=== PATIENT | male | born 1955 | race Caucasian/White ===

== ENCOUNTER → 2016-09-16 | Outpatient (CLI) | payer OTHER ==
[~2016-09-16] MED LIST: ASPI81TA28 PO; ATOR-22 PO; DULO60CA44 PO; GLC/500 PO; LEVO50TA6 PO; MONT1TAB3 PO
[2016-09-16 12:40] LABS: BASO % 0.5 %; BASO ABS # 0.04 K/uL (0-0.2); COMPLETE YES; EOS % 2.5 %; HEMATOCRIT 44.6 % (42-52); IG% 0.1 %; LYMPH % 27.4 %; MEAN CELL VOLUME 83.7 fL (80-100); MEAN CORPUSCULAR HEMOGLOBIN 28.9 pg (25-34); MEAN CORPUSCULAR HGB CONC 34.5 g/dl (32-36); MEAN PLATELET VOLUME 10.6 fL (7.4-10.4); MONO % 7.9 %; NEUT % 61.6 %; PLATELET COUNT 206 K/uL (130-400); RED BLOOD COUNT 5.33 M/uL (4.7-6.1); WHITE BLOOD COUNT 8.77 K/uL (4.8-10.8)
[2016-09-16 12:58] LABS: ALT/SGPT 24 U/L (12-78); BLOOD UREA NITROGEN 17 mg/dl (7-18); BUN/CREATININE RATIO 15.3 (10-20); CALCIUM 9.1 mg/dl (8.5-10.1); CARBON DIOXIDE 31 mmol/L (21-32); CHLORIDE 106 mmol/L (98-107); CHOLESTEROL 137 mg/dl (0-200); GLUCOSE 89 mg/dl (70-99); POTASSIUM 4.6 mmol/L (3.5-5.1); SODIUM 142 mmol/L (136-145); TRIGLYCERIDES 118 mg/dl (0-150); VERY LOW DENSITY LIPOPROT CALC 24 mg/dl
[2016-09-16 13:08] LABS: ALB/GLOB RATIO 1.1 (0.9-2); ALKALINE PHOSPHATASE 105 U/L (45-117); AST/SGOT 15 U/L (15-37); CHOLESTEROL/HDL RATIO 3.5; HDL CHOLESTEROL 39 mg/dl; LDL CHOLESTEROL CALCULATED 74 mg/dl; PROSTATE SPECIFIC ANTIGEN 0.632 ng/ml (0.000-4.000)
[2016-09-16 13:12] LABS: ESTIMATED AVERAGE GLUCOSE 117 mg/dl; HA1C FLAG Normal (Normal)
== END | disposition home or self-care (01) ==
LOC: C.LABBFT 07:55
PROVIDERS: ATTEND Internal Medicine
DX: N40.1 Benign prostatic hyperplasia with lower urinary tract symptoms (principal); R73.01 Impaired fasting glucose; E03.9 Hypothyroidism, unspecified; E78.5 Hyperlipidemia, unspecified

== ENCOUNTER → 2017-02-08 | Day surgery (SDC) | payer OTHER ==
[2017-02-01 12:47] VITALS: Ht 188 cm; Wt 131.8 kg
[~2017-02-08] VITALS: Ht 188 cm; Wt 131.8 kg
[~2017-02-08] MED LIST changes: +LIDOCAINE HCL 2% 2 ML VIAL (20MG/ML) ONE; +PROPOFOL IV EMULSION 10 MG/ML 20 ML VIAL IV ONE; +SODIUM CHLORIDE 0.9% 500ML 500 ML IV ONE
--- NOTE | 2017-02-08 08:28 | Endo History and Physical ---
History & Physical Date of Service: Feb 08, 2017. Chief Complaint: screening Referring Physician: Dr. Faustino Peralta History of Present Illness 61 yo CM who presents for screening colonoscopy. Past Surgical History Hx Cardiac Surgery: No Hx Internal Defibrillator: No Hx Pacemaker: No Hx Abdominal Surgery: No Hx of Implantable Prosthesis: No Hx Post-Op Nausea and Vomiting: No Hx Cancer Surgery: No Hx Thoracic Surgery: No Hx Orthopedic: Yes (LEFT KNEE ARTHROSCOPY, RIGHT CTR) Hx Urinary Tract Surgery: No Family History None Social History Smoking Status: Never Smoker Hx Substance Use: No Hx Alcohol Use: No Allergies Coded Allergies: No Known Allergies (Verified , 02/08/17) Current Medications Reported Home Medications Medications Dose Route/Sig Max Daily Dose Days Date Category Cymbalta (Duloxetine Hcl) 60 Mg Cap 60 Mg PO HS 02/01/17 Reported Singulair (Montelukast Sodium) 10 Mg Tab 10 Mg PO QAM 02/01/17 Reported Glucophage (Metformin Hcl) 500 Mg Tab 500 Mg PO BID 02/01/17 Reported Levothyroxine Sodium 50 Mcg Tab 1 Tab PO QAM 02/01/17 Reported Lipitor (Atorvastatin Calcium) 20 Mg Tab 20 Mg PO HS 02/01/17 Reported Aspirin Ec (Aspirin) 81 Mg Tab 81 Mg PO HS 02/01/17 Reported Vital Signs Weight (Kilograms): 131.82 Height (Feet): 6 Height (Inches): 2 Date Time Temp Pulse Resp B/P (MAP) Pulse Ox O2 Delivery O2 Flow Rate FiO2 02/08/17 08:15 36.1 81 18 166/99 (121) 97 Room Air Physical Exam General Appearance: WD/WN, no apparent distress Respiratory/Chest: Auscultation: breath sounds normal Cardiovascular: Heart Auscultation: RRR Abdomen: Bowel Sounds: normal Inspection & Palpation: soft, non-distended, no tenderness, guarding & rebound Assessment and Plan Assessment: 61 yo CM who presents for screening colonoscopy. Plan: Proceed with colonoscopy.
--- NOTE | 2017-02-08 09:36 | Discharge Instructions ---
Endoscopy Patient Instructions Date / Procedure(s) Performed Feb 08, 2017. Colonoscopy Allergy Information Coded Allergies: No Known Allergies (Verified , 02/08/17) Discharge Date / Findings Feb 08, 2017. Rectal polyp Internal hemorrhoids Medication Instructions Stopped Medication(s): Stopped ASA on wednesdayFebruary 05,all meds except Levothyroxine also stopped Wednesday OK to resume all medications today as prescribed Reported Home Medications Medications Dose Route/Sig Max Daily Dose Days Date Category Cymbalta (Duloxetine Hcl) 60 Mg Cap 60 Mg PO HS 02/01/17 Reported Singulair (Montelukast Sodium) 10 Mg Tab 10 Mg PO QAM 02/01/17 Reported Glucophage (Metformin Hcl) 500 Mg Tab 500 Mg PO BID 02/01/17 Reported Levothyroxine Sodium 50 Mcg Tab 1 Tab PO QAM 02/01/17 Reported Lipitor (Atorvastatin Calcium) 20 Mg Tab 20 Mg PO HS 02/01/17 Reported Aspirin Ec (Aspirin) 81 Mg Tab 81 Mg PO HS 02/01/17 Reported Provider Instructions Activity Restrictions - No exercising or heavy lifting for 24 hours. - Do not drink alcohol the day of the procedure. - Do not drive a car or operate machinery until the day after the procedure. - Do not make any important decisions or sign important papers in 24 hours after the procedure. Following Day: - Return to full activity which may include returning to work/school. Diet Start your diet with liquids and light foods (jello, soup, juice, toast). Then eat your usual diet if not nauseated. Treatment For Common After Affects For mild abdominal pain, bloating, or excessive gas: - Rest - Eat lightly - Lie on right side Follow-Up Information Follow-up with Dr. Faustino Peralta as scheduled Anesthesia Information What You Should Know You have had a procedure that required some medicine to reduce anxiety and discomfort. This treatment is called moderate sedation. After receiving the treatment, you may be sleepy, but you will be able to breathe on your own. The effects of the treatment may last for several hours. Follow these instructions along with Activity/Diet recommendations noted above: * Do NOT do anything where dizziness or clumsiness would be dangerous. * Rest quietly at home today, then you can be up and about tomorrow. * Have a responsible person stay with you the rest of today. * You may have had an I.V. today. If so, you may take the dressing off later today. Recommendations Call your doctor if: * Trouble breathing * Continuous vomiting for more than 24 hours * Temperature above 101 degrees * Severe abdominal pain or bloating * Pain not relieved by pain medicine ordered * There is increased drainage or redness from any incision * A large amount of rectal bleeding greater than 2-3 tablespoons. (If you had a polyp/s removed or have hemorrhoids, a small amount of blood - from the rectum is to be expected.) * You have any unanswered questions or concerns. IN THE EVENT OF A SERIOUS EMERGENCY, GO TO THE NEAREST EMERGENCY ROOM Your discharge instructions were prepared by provider Chucky Goss. Patient Instructions Signature Page Jamal Rutledge Patient (or Guardian) Signature/Date: I have read and understand the instructions given to me by my caregivers. Caregiver/RN/Doctor Signature/Date: The above-named patient and/or guardian has received patient instructions on this date. + Original Patient Signature Page (only) stays with chart. Please make copy for patient.
--- NOTE | 2017-02-08 09:45 | Anesthesiology Progress Note ---
Anesthesia Post Op Note Date & Time Feb 08, 2017 at 09:44 Vital Signs Pain Intensity: 0 Vital Signs Past 12 Hours Date Time Temp Pulse Resp B/P (MAP) Pulse Ox O2 Delivery O2 Flow Rate FiO2 02/08/17 09:34 70 20 126/64 (84) 97 Room Air 02/08/17 08:15 36.1 81 18 166/99 (121) 97 Room Air Notes Mental Status: alert / awake / arousable, participated in evaluation Pt Amnestic to Procedure: Yes Nausea / Vomiting: adequately controlled Pain: adequately controlled Airway Patency, RR, SpO2: stable & adequate BP & HR: stable & adequate Hydration State: stable & adequate Anesthetic Complications: no major complications apparent
[2017-02-08 10:03] VITALS: BP 171/87; PULSE 59; O2SAT 98
--- NOTE | 2017-02-08 11:26 | GI REPORT ---
Procedure Date: 02/08/2017 9:01 AM Procedure: Colonoscopy Indications: Screening for colorectal malignant neoplasm Medicines: Monitored Anesthesia Care Complications: No immediate complications. Estimated Blood Loss: Estimated blood loss: none. Procedure: Pre-Anesthesia Assessment: - Prior to the procedure, a History and Physical was performed, and patient medications and allergies were reviewed. The patient's tolerance of previous anesthesia was also reviewed. The risks and benefits of the procedure and the sedation options and risks were discussed with the patient. All questions were answered, and informed consent was obtained. Prior Anticoagulants: The patient has taken aspirin, last dose was 3 days prior to procedure. ASA Grade Assessment: II - A patient with mild systemic disease. After reviewing the risks and benefits, the patient was deemed in satisfactory condition to undergo the procedure. After I obtained informed consent, the scope was passed under direct vision. Throughout the procedure, the patient's blood pressure, pulse, and oxygen saturations were monitored continuously. The On-site loaner was introduced through the anus and advanced to the terminal ileum. The colonoscopy was performed without difficulty. The patient tolerated the procedure well. The quality of the bowel preparation was good. The terminal ileum, ileocecal valve, appendiceal orifice, and rectum were photographed. Findings: A 5 mm polyp was found in the rectum. The polyp was sessile. The polyp was removed with a hot snare. Resection and retrieval were complete. Non-bleeding internal hemorrhoids were found during retroflexion. The hemorrhoids were small. Impression: - One 5 mm polyp in the rectum, removed with a hot snare. Resected and retrieved. - Non-bleeding internal hemorrhoids. Recommendation: - Resume previous diet. - Continue present medications. - Repeat colonoscopy for surveillance based on pathology results. - Return to primary care physician as previously scheduled. Chucky Goss DO 02/08/2017 9:46:10 AM This report has been signed electronically. Note Initiated On: 02/08/2017 9:01 AM I attest to the content of the Intraoperative Record and orders documented therein, exceptions below
== END | disposition home or self-care (01) ==
LOC: C.GI 07:56
PROVIDERS: ATTEND Internal Medicine
DX: Z12.11 Encounter for screening for malignant neoplasm of colon (principal); K62.1 Rectal polyp; K64.8 Other hemorrhoids; E11.9 Type 2 diabetes mellitus without complications; E66.9 Obesity, unspecified; Z68.37 Body mass index [BMI] 37.0-37.9, adult; Z79.82 Long term (current) use of aspirin; Z98.890 Other specified postprocedural states

== ENCOUNTER → 2017-10-25 | Outpatient (CLI) | payer OTHER ==
[~2017-10-25] MED LIST changes: -LIDOCAINE HCL 2% 2 ML VIAL (20MG/ML) ONE; -PROPOFOL IV EMULSION 10 MG/ML 20 ML VIAL IV ONE; -SODIUM CHLORIDE 0.9% 500ML 500 ML IV ONE
[2017-10-25 12:40] LABS: BASO % 0.4 %; BASO ABS # 0.03 K/uL (0-0.2); EOS % 2.6 %; HEMATOCRIT 45.6 % (42-52); HEMOGLOBIN 15.6 g/dL (14.0-18.0); IG# 0.02 K/uL (0.00-0.02); LYMPH % 26.4 %; LYMPH ABS # 2.02 K/uL (1.2-3.4); MEAN CELL VOLUME 84.8 fL (80-100); MEAN CORPUSCULAR HGB CONC 34.2 g/dl (32-36); MEAN PLATELET VOLUME 10.6 fL (7.4-10.4); MONO % 9.2 %; NEUT % 61.1 %; NEUT ABS # 4.68 K/uL (1.4-6.5); PLATELET COUNT 220 K/uL (130-400); RED CELL DISTRIBUTION WIDTH CV 13.6 % (11.5-14.5); RED CELL DISTRIBUTION WIDTH SD 41.6 fL (36.4-46.3); WHITE BLOOD COUNT 7.65 K/uL (4.8-10.8)
[2017-10-25 13:19] LABS: HEMOGLOBIN A1C 5.6 % (4.5-5.6)
[2017-10-25 13:33] LABS: ALBUMIN 3.7 gm/dl (3.4-5.0); ALT/SGPT 25 U/L (12-78); BLOOD UREA NITROGEN 16 mg/dl (7-18); CALCIUM 9.1 mg/dl (8.5-10.1); CARBON DIOXIDE 29 mmol/L (21-32); CHOLESTEROL 132 mg/dl (0-200); CREATININE 1.07 mg/dl (0.60-1.40); GLUCOSE 90 mg/dl (70-99); POTASSIUM 4.3 mmol/L (3.5-5.1); SODIUM 141 mmol/L (136-145)
[2017-10-25 13:44] LABS: ALKALINE PHOSPHATASE 106 U/L (45-117); AST/SGOT 19 U/L (15-37); LDL CHOLESTEROL CALCULATED 79 mg/dl; TOTAL PROTEIN 7.5 gm/dl (6.4-8.2)
== END | disposition home or self-care (01) ==
LOC: C.LABBFT 07:14
PROVIDERS: ATTEND Internal Medicine
DX: R73.01 Impaired fasting glucose (principal); E78.5 Hyperlipidemia, unspecified; E55.9 Vitamin D deficiency, unspecified; E03.9 Hypothyroidism, unspecified; Z12.5 Encounter for screening for malignant neoplasm of prostate

== ENCOUNTER 2023-08-26 12:06 | Observation (INO) ==
[2023-08-26 12:39] LABS: Basophils # (auto) 0.08 K/uL (0.00-0.20); Basophils % (auto) 0.9 %; Eosinophils # (auto) 0.19 K/uL (0.00-0.50); Eosinophils % (auto) 2.1 %; Hematocrit (blood only) 46.6 % (42.0-52.0); Hemoglobin 15.6 g/dl (14.0-18.0); Immature Granulocytes # (auto) 0.03 K/uL (0.01-0.20); Immature Granulocytes % (auto) 0.3 %; Lymphocytes # (auto) 2.33 K/uL (1.20-3.40); Lymphocytes % (auto) 25.2 %; Mean Corpuscular Hemoglobin 28.1 pg (25.0-34.0); Mean Corpuscular Hgb Conc 33.5 g/dL (32.0-36.0); Mean Corpuscular Volume 83.8 fL (80.0-100.0); Monocytes # (auto) 0.86 K/uL (0.11-0.59); Monocytes % (auto) 9.3 %; Neutrophils # (auto) 5.77 K/uL (1.40-6.50); Neutrophils % (auto) 62.2 %; Platelet Count 244 K/uL (130-400); RDW Coefficient of Variation 13.3 % (11.5-14.5); RDW Standard Deviation 40.9 fL (36.4-46.3); Red Blood Count 5.56 M/uL (4.70-6.10); White Blood Count 9.26 K/ul (4.8-10.8)
[2023-08-26 12:51] LABS: BUN Creatinine Ratio 16.7 (10-20); Calcium 9.4 mg/dl (8.6-10.3); Creatinine Clr Calc Pharmacy 92.7 ml/min; Est GFR (African American) 81.3 ml/min; Est GFR (Non-African American) 70.2 ml/min; Potassium 4.1 mmol/L (3.5-5.1)
[2023-08-26 12:58] LABS: Troponin I High Sensitivity 5.6 pg/ml (0-20)
--- NOTE | 2023-08-26 13:07 | CT Scan Report ---
CT head/brain wo con CLINICAL HISTORY: 67 years-old Male with syncope. No acute syncope TECHNIQUE: Multiple axial CT images of the head were obtained without contrast. A dose lowering tech nique was utilized adhering to the principles of ALARA. CT DOSE: 627.18 mGy.cm COMPARISON: CT maxillofacial 08/20/2023 FINDINGS: No acute intracranial hemorrhage, midline shift, intracranial mass, hydrocephalus, territorial ischem ia or abnormal extra-axial collection. Involutional changes with chronic microvascular ischemic disea se. The calvarium is intact. Minimal right periorbital edema redemonstrated. Partially imaged right maxil brian polypoid mucosal thickening. IMPRESSION: No acute intracranial abnormality. ACT 112: Negative or not required by law. The above report was generated using voice recognition software. It may contain grammatical, syntax o r spelling errors. Electronically signed by: Lazaro Marroquin M.D. 08/26/2023 1:06 PM
[2023-08-26 13:10] LABS: Partial Thromboplastin Time 27 Seconds (21-31); Prothrombin Time 10.7 Seconds (9.0-12.0)
--- NOTE | 2023-08-26 13:12 | XRay Report ---
XR chest 1V portable HISTORY: Chest pain, nonspecific COMPARISON: None. FINDINGS: The cardiac silhouette is mildly enlarged. The lungs are clear. No pleural effusions. No pn eumothorax. No acute fractures identified. IMPRESSION: Mild cardiomegaly. Otherwise, no acute process within the chest. ACT 112: Negative or not required by law. Electronically signed by: Blane Hardin M.D. 08/26/2023 1:11 PM
[2023-08-26 13:16] LABS: D Dimer 1300 ug/L FEU (0-500)
[2023-08-26] MEDS ORDERED: OPTIRAY 320 125ml IV ONE (13:31)
--- NOTE | 2023-08-26 14:17 | CT Scan Report ---
CT angio chest PE protocol CT DOSE: 1015.74 mGy.cm HISTORY: 67 years-old Male with ro PE. Acute shortness of breath TECHNIQUE: Multiple CTA images of the chest were obtained after the intravenous administration of 114 ml Optiray. Coronal and sagittal MIPS were obtained from the axial data set and were submitted for review. All measurements were obtained according to NASCET criteria. A dose lowering technique was u tilized adhering to the principles of ALARA. COMPARISON: Chest radiograph 08/26/2023 FINDINGS: CTA: Heart is mildly enlarged. Extensive coronary artery calcifications. Atherosclerosis of the aorta with out aneurysm. Segmental and subsegmental pulmonary arterial branches are not well-visualized secondar y to contrast bolus timing and respiratory motion artifact. No central pulmonary emboli identified. CT CHEST: Unremarkable thyroid. No lymphadenopathy. Mild gynecomastia. No pneumothorax, pleural effusion or air space consolidation. No suspicious pulmonary nodules or masses. Central airways are patent. No acute upper abdominal abnormality. 4.6 and renal hypodense lesion of the superior pole left kidney suggestive of a probable cyst. Unremarkable soft tissues. No acute fracture. Degenerative changes of the shoulders and spine. IMPRESSION: Unremarkable CTA of the chest. No pulmonary emboli identified. ACT 112: Negative or not required by law. The above report was generated using voice recognition software. It may contain grammatical, syntax o r spelling errors. Electronically signed by: Lazaro Marroquin M.D. 08/26/2023 2:16 PM
--- NOTE | 2023-08-26 15:35 | History & Physical Report ---
Date of Service August 26, 2023 Assessment & Plan (1) Syncope: Plan: 67 yo male with PMHx of HLD, hypothyroidism, HTN, and memory loss, and depression presents for syncope. #Syncope -presented with 2 episodes of syncope 1 week apart. Both episodes preceded with shortness of breath otherwise without prodrome or subsequent confusion. Likely cardiogenic. HR appears to be in 50s since admission, ?episodic bradycardic events. Head CT neg. CTA without PE. CXR unremarkable. No signs for infection. Troponin negative. EKG with sinus bradycardia. -echo ordered -cardiology consulted -monitor on tele - may require outpatient holter monitor #Elevated D-dimer -D-dimer 1300 on admission; unclear etiology, possible due to traumatic falls -CTA chest without PE -ordered bilateral venous Doppler to r/o DVT #Hypothyroidism -cont. levothyroxine -recheck TSH for secondary cause of syncope #HTN -cont. lisinopril #HLD -cont. statin #Memory Deficit -cont. donepezil #Depression -cont. sertraline #Allergic Rhinitis -cont. montelukast, loratadine DVT ppx: heparin SQ FEN/GI: HH, DM2 Code Status: full Dispo: med tele (2) Depression: (3) Hyperlipidemia: (4) Hypertension: (5) Hypothyroidism: (6) Memory deficit: (7) Allergic rhinitis: History of Present Illness Chief Complaint: syncope Primary Care Provider: Faustino Peralta MD 67 yo male with PMHx of HLD, hypothyroidism, HTN, and memory loss, and depression presents for syncope. 11 days ago patient was shoveling snow in his driveway and had sudden onset shortness of breath. He walked into his house and while grasping a chair for support he got a little dizzy and fainted to the ground. He was down for 1 to 2 minutes. His states that when he got back up he collapsed a second time. No seizure-like activity. When he came about he had very minimal confusion. Then 3 days ago he had a similar event. He got up from his bed and went to the bathroom and after a few minutes passed out to the floor hitting his right knee on the way down. No prodrome with this incidence and when he woke up he had no idea he had passed out. His does mention that in bed prior to him getting up he did appear short of breath. He will have intermittent headache from time to time. Otherwise denies fever, chills, fatigue, chest pain, abdominal pain, nausea, vomiting, diarrhea, dysuria, extremity weakness/tingling/numbness. He has not had any syncopal events in the past. No significant heart or lung history. He states he likely has sleep apnea however has never had a sleep study in the outpatient setting. Allergies Allergy/AdvReac Type Severity Reaction Status Date / Time No Known Allergies Allergy Verified 08/26/23 10:22 Home Medications Medication Instructions Recorded Confirmed Type metformin 500 mg tablet,extended 500 mg PO BID #180 tabs 09/24/22 08/26/23 Rx release 24hr (osmotic) donepezil 10 mg tablet 10 mg PO DAILY #90 tabs 10/16/22 08/26/23 Rx aspirin 81 mg tablet,delayed 81 mg PO DAILY PRN pain 10/21/22 08/26/23 History release (Adult Low Dose Aspirin) montelukast 10 mg tablet 10 mg PO DAILY #90 tabs 10/30/22 08/26/23 Rx lisinopril 5 mg tablet 5 mg PO DAILY #90 tabs 11/11/22 08/26/23 Rx loratadine 10 mg tablet (Claritin) 10 mg PO DAILY 11/18/22 08/26/23 History sertraline 50 mg tablet 50 mg PO DAILY #90 tabs 04/30/23 08/26/23 Rx levothyroxine 50 mcg tablet 50 mcg PO DAILY #90 tabs 08/19/23 08/26/23 Rx amoxicillin 875 mg-potassium 1 tab PO BID #18 tabs 08/20/23 08/26/23 Rx clavulanate 125 mg tablet erythromycin 5 mg/gram (0.5 %) eye 1 cm OPL Q6H 7 days #3.5 grams 08/20/23 08/26/23 Rx ointment erythromycin 5 mg/gram (0.5 %) eye 1 cm OPR Q6H 7 days #3.5 grams 08/20/23 08/26/23 Rx ointment atorvastatin 20 mg tablet 20 mg PO DAILY #90 tabs 08/25/23 08/26/23 Rx Past Med/Surg History Medical History No pertinent past medical history Surgical History H/O colonoscopy S/P arthroscopic surgery of left knee History of decompression of median nerve H/O vasectomy Family History Father Multiple myeloma Mother Coronary heart disease Diabetes Acute myocardial infarction Myocardial infarction Denies family history of Ovarian cancer Prostate cancer Breast cancer Colorectal cancer Social History Smoking Status: Never smoker Second Hand Exposure: Yes; Do You Dip or Chew Tobacco: No; Hx Alcohol Use: Yes Hx Substance Use: No Preferred Language: Mauritanian Beliefs That Will Affect Care: None marital status: Current Living Situation: Spouse and Family current occupational status: retired current occupation: general accountant at [employer] Feels Safe at Home: Yes Childhood Exposure to Second-Hand Smoke: Yes Diet: regular caffeine: Yes (Not often) Dental Care, Regularly: Yes Physical Activity Frequency: 5-6 Times per Week Seatbelt Use: always Sunscreen Use: No Assistive Devices: Glasses Review of Systems Review of Systems: All systems reviewed & are unremarkable except as noted in HPI & below Physical Exam Physical Exam: Constitutional: in no acute distress, pleasant and normal affect. AOx3. Vitals as above. HEENT: No scleral injection or discharge. Moist mucous membranes. Neck: Supple without lymphadenopathy or thyromegaly. Trachea midline. Lungs: CTAB with good effort. No wheezes/rales/rhonchi. Cardiac: Bradycardic. Normal rhythm.No murmurs. No lower extremity edema. 2+ distal peripheral pulses. Abdomen: Bowel sounds present. Soft, nontender, and nondistended.No guarding. No hepatosplenomegaly. MSK: No cyanosis or clubbing. Extremities motor strength 5/5. Limited R knee flexion secondary to fall. Skin: No rashes, warm, dry. Neurologic: no focal deficits. PERRL. Results & Data Results & Data Vital Signs (Past 12 Hours) Vital Signs Temp Pulse Pulse Resp BP BP Pulse Ox 08/26/23 14:07 58 L 16 139/80 99 08/26/23 12:29 56 L 08/26/23 12:25 08/26/23 12:25 08/26/23 12:09 36.4 C L 63 20 162/84 H 98 O2 Del Method 08/26/23 14:07 Room Air 08/26/23 12:29 08/26/23 12:25 Room Air 08/26/23 12:25 Room Air 08/26/23 12:09 Room Air Laboratory Results Laboratory Results WBC 9.26 K/ul (4.8-10.8) 08/26/23 12:20 RBC 5.56 M/uL (4.70-6.10) 08/26/23 12:20 Hgb 15.6 g/dl (14.0-18.0) 08/26/23 12:20 Hct 46.6 % (42.0-52.0) 08/26/23 12:20 MCV 83.8 fL (80.0-100.0) 08/26/23 12:20 MCH 28.1 pg (25.0-34.0) 08/26/23 12:20 MCHC 33.5 g/dL (32.0-36.0) 08/26/23 12:20 RDW Std Deviation 40.9 fL (36.4-46.3) 08/26/23 12:20 RDW Coeff of Melinda 13.3 % (11.5-14.5) 08/26/23 12:20 Plt Count 244 K/uL (130-400) 08/26/23 12:20 MPV 10.0 fL (9.4-12.4) 08/26/23 12:20 Immature Gran % (Auto) 0.3 % 08/26/23 12:20 Neut % (Auto) 62.2 % 08/26/23 12:20 Lymph % (Auto) 25.2 % 08/26/23 12:20 Irwin % (Auto) 9.3 % 08/26/23 12:20 Eos % (Auto) 2.1 % 08/26/23 12:20 Baso % (Auto) 0.9 % 08/26/23 12:20 Neut # (Auto) 5.77 K/uL (1.40-6.50) 08/26/23 12:20 Lymph # (Auto) 2.33 K/uL (1.20-3.40) 08/26/23 12:20 Irwin # (Auto) 0.86 K/uL (0.11-0.59) H 08/26/23 12:20 Eos # (Auto) 0.19 K/uL (0.00-0.50) 08/26/23 12:20 Baso # (Auto) 0.08 K/uL (0.00-0.20) 08/26/23 12:20 Immature Gran # (Auto) 0.03 K/uL (0.01-0.20) 08/26/23 12:20 PT 10.7 Seconds (9.0-12.0) 08/26/23 12:20 INR 1.0 (0.9-1.1) 08/26/23 12:20 APTT 27 Seconds (21-31) 08/26/23 12:20 PTT Ratio 1.0 08/26/23 12:20 D-Dimer 1300 ug/L FEU (0-500) H* 08/26/23 12:20 Sodium 141 mmol/L (136-145) 08/26/23 12:20 Potassium 4.1 mmol/L (3.5-5.1) 08/26/23 12:20 Chloride 107 mmol/L (98-107) 08/26/23 12:20 Carbon Dioxide 29 mmol/L (21-32) 08/26/23 12:20 Anion Gap 5 (3-11) 08/26/23 12:20 BUN 18 mg/dl (6-23) 08/26/23 12:20 Creatinine 1.08 mg/dl (0.6-1.4) 08/26/23 12:20 Est Cr Clr Drug Dosing 92.7 ml/min 08/26/23 12:20 Est GFR ( Amer) 81.3 ml/min 08/26/23 12:20 Est GFR (Non-Af Amer) 70.2 ml/min 08/26/23 12:20 BUN/Creatinine Ratio 16.7 (10-20) 08/26/23 12:20 Glucose 87 mg/dl (70-99(Fasting)) 08/26/23 12:20 Calcium 9.4 mg/dl (8.6-10.3) 08/26/23 12:20 Troponin I High Sens 5.6 pg/ml (0-20) 08/26/23 12:20 Lipase 42 U/L (11-82) 08/26/23 12:20 Impressions Chest X-Ray 08/26/23 12:20 XR chest 1V portable HISTORY: Chest pain, nonspecific COMPARISON: None. FINDINGS: The cardiac silhouette is mildly enlarged. The lungs are clear. No pleural effusions. No pneumothorax. No acute fractures identified. IMPRESSION: Mild cardiomegaly. Otherwise, no acute process within the chest. ACT 112: Negative or not required by law. Electronically signed by: Blane Hardin M.D. 08/26/2023 1:[address] 08/26/23 12:21 CT head/brain wo con CLINICAL HISTORY: 67 years-old Male with syncope. No acute syncope TECHNIQUE: Multiple axial CT images of the head were obtained without contrast. A dose lowering technique was utilized adhering to the principles of ALARA. CT DOSE: 627.18 mGy.cm COMPARISON: CT maxillofacial 08/20/2023 FINDINGS: No acute intracranial hemorrhage, midline shift, intracranial mass, hydrocephalus, territorial ischemia or abnormal extra-axial collection. Involutional changes with chronic microvascular ischemic disease. The calvarium is intact. Minimal right periorbital edema redemonstrated. Partially imaged right maxillary polypoid mucosal thickening. IMPRESSION: No acute intracranial abnormality. ACT 112: Negative or not required by law. The above report was generated using voice recognition software. It may contain grammatical, syntax or spelling errors. Electronically signed by: Lazaro Marroquin M.D. 08/26/2023 1:06 PM Chest CTA 08/26/23 13:18 CT angio chest PE protocol CT DOSE: 1015.74 mGy.cm HISTORY: 67 years-old Male with ro PE. Acute shortness of breath TECHNIQUE: Multiple CTA images of the chest were obtained after the intravenous administration of 114 ml Optiray. Coronal and sagittal MIPS were obtained from the axial data set and were submitted for review. All measurements were obtained according to NASCET criteria. A dose lowering technique was utilized adhering to the principles of ALARA. COMPARISON: Chest radiograph 08/26/2023 FINDINGS: CTA: Heart is mildly enlarged. Extensive coronary artery calcifications. Atherosclerosis of the aorta without aneurysm. Segmental and subsegmental pulmonary arterial branches are not well-visualized secondary to contrast bolus timing and respiratory motion artifact. No central pulmonary emboli identified. CT CHEST: Unremarkable thyroid. No lymphadenopathy. Mild gynecomastia. No pneumothorax, pleural effusion or airspace consolidation. No suspicious pulmonary nodules or masses. Central airways are patent. No acute upper abdominal abnormality. 4.6 and renal hypodense lesion of the superior pole left kidney suggestive of a probable cyst. Unremarkable soft tissues. No acute fracture. Degenerative changes of the shoulders and spine. IMPRESSION: Unremarkable CTA of the chest. No pulmonary emboli identified. ACT 112: Negative or not required by law. The above report was generated using voice recognition software. It may contain grammatical, syntax or spelling errors. Electronically signed by: Lazaro Marroquin M.D. 08/26/2023 2:16 PM Knee X-Ray 08/26/23 15:12 XR knee RT 3V HISTORY: 67 years-old Male r/o fracture acute right knee pain COMPARISON: None TECHNIQUE: 3 views of the right knee FINDINGS: Mild tricompartmental osteoarthritis with small moderate joint effusion. Enthesophytes of the patella. No acute fracture, dislocation or opaque foreign body. Mild circumferential soft tissue prominence. IMPRESSION: 1. Joint effusion without acute fracture or dislocation. 2. Mild osteoarthritis. ACT 112: Negative or not required by law. The above report was generated using voice recognition software. It may contain grammatical, syntax or spelling errors. Electronically signed by: Lazaro Marroquin M.D. 08/26/2023 3:45 PM Code Status & VTE Plan VTE Prophylaxis Plan VTE Prophylaxis will be ordered: Yes Supervising Physician Co-Signing Physician Notes Patient seen and examined, chart reviewed, case discussed with Stew Morillo and I agree with the assessment and plan as above except as otherwise noted Labs and images reviewed 67-year-old male who presents with recurrent episodes of syncope. Patient reports earlier in August after shoveling snow he had an episode of heavy breathing and a few minutes of lightheadedness after which she had an episode of syncope. He reports he was doing well up until this past week when he was getting dressed and walking to the bed when he lost consciousness and fell to the ground, his heard him and immediately came to his assistance. He had no prodrome with this episode. Recovered immediately did not have bowel or bladder incontinence confusion or weakness after however he did attempt to get up and had a second episode of syncope before waking up. No chest pain or chest pressure. He did not feel short of breath but did note his breathing was very heavy the first time. He reports he has no inspiratory or pleuritic pain. He notes he has some right knee and leg swelling since his second fall caused him to drop to his knee. D-dimer was positive, CTA did not show any evidence of PE. Given trauma elevated D-dimer and leg swelling lower extremity Dopplers are pending to R/o LE DVT. However PE does not appear to be the cause of his syncope. Patient has not had anginal symptoms preceding this and had a normal stress test in the past. EKG on admission is sinus bradycardia, QT CT and QRS are normal. He is not on any beta-blockers or calcium channel blockers. He has not had fever/chills or sweats to suggest infectious etiology, and no neurologic deficits. On exam lungs are clear, heart rate is regular, and he does not have any carotid bruits. While 1 episode did occur after shoveling and standing, he has not had problems with hypotension and second episodes sound very abrupt and inconsistent with orthostasis. Agree with admission for workup of suspected cardiogenic syncope. Continue on telemetry, echo pending. If inpatient workup is negative patient can have 3-day event monitor set up as outpatient. Cardiology consulted as noted, troponin is negative, no signs of ACS. Lyme is pending. Agree with assessment and management as above. Resident Activity Tracking Resident Involvement: Resident Care Provided Care Provided: Adult [facility] (2) Depression Depression Type: other depression Qualified Code(s): F32.89 - Other specified depressive episodes
--- NOTE | 2023-08-26 15:46 | XRay Report ---
XR knee RT 3V HISTORY: 67 years-old Male r/o fracture acute right knee pain COMPARISON: None TECHNIQUE: 3 views of the right knee FINDINGS: Mild tricompartmental osteoarthritis with small moderate joint effusion. Enthesophytes of the patella . No acute fracture, dislocation or opaque foreign body. Mild circumferential soft tissue prominence. IMPRESSION: 1. Joint effusion without acute fracture or dislocation. 2. Mild osteoarthritis. ACT 112: Negative or not required by law. The above report was generated using voice recognition software. It may contain grammatical, syntax o r spelling errors. Electronically signed by: Lazaro Marroquin M.D. 08/26/2023 3:45 PM
[2023-08-26 16:54] LABS: Lyme Ab IgG w/WB Rflx Negative (Negative)
[2023-08-26 16:55] LABS: Lyme Ab IgM w/WB Rflx Negative (Negative)
--- NOTE | 2023-08-26 17:03 | Ultrasound Report ---
ULTRASOUND BILATERAL LOWER EXTREMITY VENOUS CLINICAL HISTORY: Leg pain. COMPARISON STUDY: Left lower extremity venous ultrasound dated 04/25/2012. TECHNIQUE: Real-time, grayscale, and color Doppler sonography of the deep veins of the right and left lower extremity was performed from the inguinal crease to the calf. Compression and augmentation wer e utilized. FINDINGS: There is no sonographic evidence of deep venous thrombosis identified in the right or left lower extremity. The common femoral, superficial femoral, and popliteal veins are patent and normally compressible bilaterally. The greater saphenous vein and the profunda femoris vein at the junction w ith the common femoral vein are clear in both legs. The visualized calf veins are patent bilaterally. There is superficial venous thrombus identified in the lesser saphenous vein on the left extending f rom the popliteal fossa to the mid calf. This measures greater than 5 cm in length. A complex poplite al cyst on the left measures 4.6 x 2.2 x 2.9 cm. IMPRESSION: 1. There is no sonographic evidence of deep venous thrombosis identified in the right or left lower e xtremity. 2. Occlusive superficial venous thrombus in the lesser saphenous vein is seen on the left as above. 3. Complex left popliteal cyst. ACT 112: Negative or not required by law. Electronically signed by: Luigi Mi M.D. 08/26/2023 5:02 PM
[2023-08-26] MEDS ORDERED: POLYETHYLENE (MIRALAX) 17 GM PACK PO PRN (17:32)
[2023-08-26] MEDS ORDERED: ONDANSETRON 4 MG OD TAB PO PRN (17:32)
[2023-08-26] MEDS ORDERED: ACETAMINOPHEN 325 MG TAB PO PRN (17:32)
[2023-08-26 17:35] LABS: Thyroid Stimulating Hormone 2.068 uIu/ml (0.300-4.500)
--- NOTE | 2023-08-26 18:07 | XCELERA ---
[id number] \\[id number]
[2023-08-26] MEDS: LEVOTHYROXINE SODIUM 50 MCG TABLET PO SCH (18:31)
[2023-08-26] MEDS: DONEPEZIL HCL 10 MG TAB PO SCH (18:31)
[2023-08-26] MEDS: LORATADINE 10 MG TAB PO SCH (18:31)
[2023-08-26] MEDS: MONTELUKAST SODIUM 10 MG TABLET PO SCH (18:31)
[2023-08-26] MEDS: SERTRALINE HCL 50 MG TABLET PO SCH (18:31)
[2023-08-26] MEDS: lisinopril 5 MG TAB PO SCH (18:32)
[2023-08-26] MEDS: ATORVASTATIN 20 MG TAB PO SCH (18:32)
--- NOTE | 2023-08-26 18:41 | Emergency Department Note ---
History of Present Illness General Chief complaint: Cardiac Assessment Stated complaint: IRREGULAR EKG, SYNCOPE, REF BY DOC Time Seen by Provider: 08/26/23 12:18 History of Present Illness Provider complaint: Syncope 15-year-old male presents emergency department for syncope. Patient reports that he had 2 episodes of syncope over the last week. He states he had a syncopal episode last week after shoveling snow. He denies any chest pain or difficulty breathing. He states he felt fine and then later on the week of the second syncopal episode. He reports no headache. No melena or hematochezia. Home Medications Medication Instructions Recorded Confirmed Type metformin 500 mg tablet,extended 500 mg PO BID #180 tabs 09/24/22 08/26/23 Rx release 24hr (osmotic) donepezil 10 mg tablet 10 mg PO DAILY #90 tabs 10/16/22 08/26/23 Rx aspirin 81 mg tablet,delayed 81 mg PO DAILY PRN pain 10/21/22 08/26/23 History release (Adult Low Dose Aspirin) montelukast 10 mg tablet 10 mg PO DAILY #90 tabs 10/30/22 08/26/23 Rx lisinopril 5 mg tablet 5 mg PO DAILY #90 tabs 11/11/22 08/26/23 Rx loratadine 10 mg tablet (Claritin) 10 mg PO DAILY 11/18/22 08/26/23 History sertraline 50 mg tablet 50 mg PO DAILY #90 tabs 04/30/23 08/26/23 Rx levothyroxine 50 mcg tablet 50 mcg PO DAILY #90 tabs 08/19/23 08/26/23 Rx amoxicillin 875 mg-potassium 1 tab PO BID #18 tabs 08/20/23 08/26/23 Rx clavulanate 125 mg tablet erythromycin 5 mg/gram (0.5 %) eye 1 cm OPL Q6H 7 days #3.5 grams 08/20/23 08/26/23 Rx ointment erythromycin 5 mg/gram (0.5 %) eye 1 cm OPR Q6H 7 days #3.5 grams 08/20/23 08/26/23 Rx ointment atorvastatin 20 mg tablet 20 mg PO DAILY #90 tabs 08/25/23 08/26/23 Rx Allergies Allergy/AdvReac Type Severity Reaction Status Date / Time No Known Allergies Allergy Verified 08/26/23 10:22 Past Med/Surg History Medical History Depression Erectile dysfunction Hyperlipidemia Spinal stenosis BPH (benign prostatic hyperplasia) Prediabetes Hypertension Hypothyroidism Surgical History H/O colonoscopy S/P arthroscopic surgery of left knee History of decompression of median nerve H/O vasectomy Family History Father Multiple myeloma Mother Coronary heart disease Diabetes Acute myocardial infarction Myocardial infarction Denies family history of Ovarian cancer Prostate cancer Breast cancer Colorectal cancer Social History Smoking Status: Never smoker Second Hand Exposure: Yes; Do You Dip or Chew Tobacco: No; Hx Alcohol Use: Yes Hx Substance Use: No Preferred Language: Dutch Beliefs That Will Affect Care: None marital status: Current Living Situation: Spouse and Family current occupational status: retired current occupation: accountant property at [employer] Feels Safe at Home: Yes Childhood Exposure to Second-Hand Smoke: Yes Diet: regular caffeine: Yes (Not often) Dental Care, Regularly: Yes Physical Activity Frequency: 5-6 Times per Week Seatbelt Use: always Sunscreen Use: No Assistive Devices: Glasses Physical Exam Vital Signs Vital Signs - 24 hr 08/26/23 12:09 08/26/23 12:25 08/26/23 12:25 Temperature 36.4 C L Temperature Source Oral Pulse Rate 63 Pulse Rate [Apical] Pulse Rhythm Regular Pulse Strength Normal Respiratory Rate 20 Respiratory Effort / Characteristics Non-Labored Respiratory Depth Normal Respiratory Pattern Regular Blood Pressure 162/84 H Blood Pressure [Right Arm] Blood Pressure Mean 110 Blood Pressure Mean [Right Arm] Blood Pressure Position Sitting Pulse Oximetry 98 Oxygen Delivery Method Room Air Room Air Room Air Sepsis Recent Fever Within 48 Hours No Sepsis New/Unexplained Change in Mental Status No Sepsis Action Taken by Nursing No Action Required 08/26/23 12:29 08/26/23 14:07 Temperature Temperature Source Pulse Rate 56 L Pulse Rate [Apical] 58 L Pulse Rhythm Pulse Strength Respiratory Rate 16 Respiratory Effort / Characteristics Respiratory Depth Respiratory Pattern Blood Pressure Blood Pressure [Right Arm] 139/80 Blood Pressure Mean Blood Pressure Mean [Right Arm] 99 Blood Pressure Position Pulse Oximetry 99 Oxygen Delivery Method Room Air Sepsis Recent Fever Within 48 Hours Sepsis New/Unexplained Change in Mental Status Sepsis Action Taken by Nursing Physical Exam GENERAL: oriented to person, place, and time. appears well-developed and well- nourished. HENT: Exam performed. - Head: Normocephalic and atraumatic. EYES: Conjunctivae and EOM are normal. Right eye exhibits no discharge. Left eye exhibits no discharge. No scleral icterus. NECK: Normal range of motion. Neck supple. No JVD present. CV: Normal rate, regular rhythm, normal heart sounds and intact distal pulses. There is no peripheral edema. Palpable radial pulses bue. PULM/CHEST: Effort normal and breath sounds normal. No respiratory distress. No stridor. no wheezes. no rales. ABD: The abdomen is soft. There is no tenderness. NEURO: Motor and sensation grossly intact. SKIN: Skin is warm and dry. He is not diaphoretic. PSYCH: normal mood and affect. Behavior is normal. Judgment and thought content normal. Course Course 1218: The patient was evaluated in room B9. A complete history and physical exam was performed Cardiac monitoring: An order was placed for continuous cardiac monitoring. The monitor shows a rate of 60 with sinus rhythm interpreted by me 1435: Vital signs stable. Labs within normal limits with exception of a D-dimer that was elevated. CT of the chest negative for PE CT of the head and within normal limits. Given the patient's recurrent syncopal episodes patient will be admitted to the medicine service. Administered Medications Atorvastatin Calcium (Atorvastatin 20 Mg Tab) 20 mg PO DAILY [facility] Stop: 09/25/23 17:31 Last Admin: 08/26/23 18:32 Dose: 20 mg Documented By: AIDA Donepezil HCl (Donepezil Hcl 10 Mg Tab) 10 mg PO DAILY [facility] Stop: 09/25/23 17:31 Last Admin: 08/26/23 18:31 Dose: 10 mg Documented By: AIDA Levothyroxine Sodium (Levothyroxine Sodium 50 Mcg Tablet) 50 mcg PO DAILYBB [facility] Stop: 09/25/23 06:29 Last Admin: 08/26/23 18:31 Dose: Not Given Documented By: AIDA Lisinopril (Lisinopril 5 Mg Tab) 5 mg PO DAILY [facility] Stop: 09/25/23 17:31 Last Admin: 08/26/23 18:32 Dose: 5 mg Documented By: AIDA Loratadine (Loratadine 10 Mg Tab) 10 mg PO DAILY [facility] Stop: 09/25/23 17:31 Last Admin: 08/26/23 18:31 Dose: 10 mg Documented By: AIDA Montelukast Sodium (Montelukast Sodium 10 Mg Tablet) 10 mg PO DAILY [facility] Stop: 09/25/23 17:31 Last Admin: 08/26/23 18:31 Dose: 10 mg Documented By: AIDA Sertraline HCl (Sertraline Hcl 50 Mg Tablet) 50 mg PO DAILY [facility] Stop: 09/25/23 17:31 Last Admin: 08/26/23 18:31 Dose: 50 mg Documented By: AIDA Discontinued Medications Ioversol (Optiray 320 125ml) 114 ml IV ONCE ONE Stop: 08/26/23 13:32 Last Admin: 08/26/23 13:31 Dose: 114 ml Documented By: MIKE Medical Decision Making Laboratory Data Attestation: I reviewed the patient's lab results. 08/26/23 12:20 08/26/23 12:20 Lab Results 08/26/23 Range/Units 12:20 WBC 9.26 (4.8-10.8) K/ul RBC 5.56 (4.70-6.10) M/uL Hgb 15.6 (14.0-18.0) g/dl Hct 46.6 (42.0-52.0) % MCV 83.8 (80.0-100.0) fL MCH 28.1 (25.0-34.0) pg MCHC 33.5 (32.0-36.0) g/dL RDW Std Deviation 40.9 (36.4-46.3) fL RDW Coeff of Melinda 13.3 (11.5-14.5) % Plt Count 244 (130-400) K/uL MPV 10.0 (9.4-12.4) fL Immature Gran % (Auto) 0.3 % Neut % (Auto) 62.2 % Lymph % (Auto) 25.2 % Stephens % (Auto) 9.3 % Eos % (Auto) 2.1 % Baso % (Auto) 0.9 % Neut # (Auto) 5.77 (1.40-6.50) K/uL Lymph # (Auto) 2.33 (1.20-3.40) K/uL Stephens # (Auto) 0.86 H (0.11-0.59) K/uL Eos # (Auto) 0.19 (0.00-0.50) K/uL Baso # (Auto) 0.08 (0.00-0.20) K/uL Immature Gran # (Auto) 0.03 (0.01-0.20) K/uL PT 10.7 (9.0-12.0) Seconds INR 1.0 (0.9-1.1) APTT 27 (21-31) Seconds PTT Ratio 1.0 D-Dimer 1300 H* (0-500) ug/L FEU Sodium 141 (136-145) mmol/L Potassium 4.1 (3.5-5.1) mmol/L Chloride 107 (98-107) mmol/L Carbon Dioxide 29 (21-32) mmol/L Anion Gap 5 (3-11) BUN 18 (6-23) mg/dl Creatinine 1.08 (0.6-1.4) mg/dl Est Cr Clr Drug Dosing 92.7 ml/min Est GFR ( Amer) 81.3 ml/min Est GFR (Non-Af Amer) 70.2 ml/min BUN/Creatinine Ratio 16.7 (10-20) Glucose 87 (70-99(Fasting)) mg/dl Calcium 9.4 (8.6-10.3) mg/dl Troponin I High Sens 5.6 (0-20) pg/ml Lipase 42 (11-82) U/L TSH 2.068 (0.300-4.500) uIu/ml Imaging Data Radiologist's Impression: Chest X-Ray 08/26/23 12:20 XR chest 1V portable HISTORY: Chest pain, nonspecific COMPARISON: None. FINDINGS: The cardiac silhouette is mildly enlarged. The lungs are clear. No pleural effusions. No pneumothorax. No acute fractures identified. IMPRESSION: Mild cardiomegaly. Otherwise, no acute process within the chest. ACT 112: Negative or not required by law. Electronically signed by: Blane Hardin M.D. 08/26/2023 1:[address] 08/26/23 12:21 CT head/brain wo con CLINICAL HISTORY: 67 years-old Male with syncope. No acute syncope TECHNIQUE: Multiple axial CT images of the head were obtained without contrast. A dose lowering technique was utilized adhering to the principles of ALARA. CT DOSE: 627.18 mGy.cm COMPARISON: CT maxillofacial 08/20/2023 FINDINGS: No acute intracranial hemorrhage, midline shift, intracranial mass, hydrocephalus, territorial ischemia or abnormal extra-axial collection. Involutional changes with chronic microvascular ischemic disease. The calvarium is intact. Minimal right periorbital edema redemonstrated. Partially imaged right maxillary polypoid mucosal thickening. IMPRESSION: No acute intracranial abnormality. ACT 112: Negative or not required by law. The above report was generated using voice recognition software. It may contain grammatical, syntax or spelling errors. Electronically signed by: Lazaro Marroquin M.D. 08/26/2023 1:06 PM Chest CTA 08/26/23 13:18 CT angio chest PE protocol CT DOSE: 1015.74 mGy.cm HISTORY: 67 years-old Male with ro PE. Acute shortness of breath TECHNIQUE: Multiple CTA images of the chest were obtained after the intravenous administration of 114 ml Optiray. Coronal and sagittal MIPS were obtained from the axial data set and were submitted for review. All measurements were obtained according to NASCET criteria. A dose lowering technique was utilized adhering to the principles of ALARA. COMPARISON: Chest radiograph 08/26/2023 FINDINGS: CTA: Heart is mildly enlarged. Extensive coronary artery calcifications. Atherosclerosis of the aorta without aneurysm. Segmental and subsegmental pulmonary arterial branches are not well-visualized secondary to contrast bolus timing and respiratory motion artifact. No central pulmonary emboli identified. CT CHEST: Unremarkable thyroid. No lymphadenopathy. Mild gynecomastia. No pneumothorax, pleural effusion or airspace consolidation. No suspicious pulmonary nodules or masses. Central airways are patent. No acute upper abdominal abnormality. 4.6 and renal hypodense lesion of the superior pole left kidney suggestive of a probable cyst. Unremarkable soft tissues. No acute fracture. Degenerative changes of the shoulders and spine. IMPRESSION: Unremarkable CTA of the chest. No pulmonary emboli identified. ACT 112: Negative or not required by law. The above report was generated using voice recognition software. It may contain grammatical, syntax or spelling errors. Electronically signed by: Lazaro Marroquin M.D. 08/26/2023 2:16 PM Knee X-Ray 08/26/23 15:12 XR knee RT 3V HISTORY: 67 years-old Male r/o fracture acute right knee pain COMPARISON: None TECHNIQUE: 3 views of the right knee FINDINGS: Mild tricompartmental osteoarthritis with small moderate joint effusion. Enthesophytes of the patella. No acute fracture, dislocation or opaque foreign body. Mild circumferential soft tissue prominence. IMPRESSION: 1. Joint effusion without acute fracture or dislocation. 2. Mild osteoarthritis. ACT 112: Negative or not required by law. The above report was generated using voice recognition software. It may contain grammatical, syntax or spelling errors. Electronically signed by: Lazaro Marroquin M.D. 08/26/2023 3:45 PM ECG Data Attestation: I personally reviewed and interpreted this ECG as follows: Indication: + syncope Rate (beats per minute): 58 Rhythm: + sinus bradycardia ECG Intervals/blocks: + Normal QRS, + Normal NC and + Normal QT-c ECG ST segments: + Normal ST segments [facility] Narrative 1218: The patient was evaluated in room B9. A complete history and physical exam was performed Cardiac monitoring: An order was placed for continuous cardiac monitoring. The monitor shows a rate of 60 with sinus rhythm interpreted by me 1435: Vital signs stable. Labs within normal limits with exception of a D-dimer that was elevated. CT of the chest negative for PE CT of the head and within normal limits. Given the patient's recurrent syncopal episodes patient will be admitted to the medicine service. Impression & Plan Syncope Discharge Plan Visit Data Chief Complaint: Cardiac Assessment Stated Complaint: IRREGULAR EKG, SYNCOPE, REF BY DOC ED Provider: Huseyin Collier Discharge Problem: Syncope Patient Disposition: Admitted As Inpatient Discharge Instructions Interventions: ED Discharge Assessment Last Done: 08/26/23 17:33 Discharge Problem: Syncope Qualifiers: Syncope type: unspecified Qualified Code(s): R55 - Syncope and collapse
[2023-08-26] MEDS ORDERED: HEPARIN SOD 5,000 UNIT/0.5 ML VIAL SQ SCH (21:00)
[2023-08-27 05:28] LABS: Basophils # (auto) 0.07 K/uL (0.00-0.20); Basophils % (auto) 0.8 %; Eosinophils # (auto) 0.22 K/uL (0.00-0.50); Eosinophils % (auto) 2.6 %; Hematocrit (blood only) 42.2 % (42.0-52.0); Hemoglobin 14.2 g/dl (14.0-18.0); Immature Granulocytes # (auto) 0.02 K/uL (0.01-0.20); Immature Granulocytes % (auto) 0.2 %; Lymphocytes # (auto) 2.35 K/uL (1.20-3.40); Lymphocytes % (auto) 27.5 %; Mean Corpuscular Hemoglobin 27.8 pg (25.0-34.0); Mean Corpuscular Hgb Conc 33.6 g/dL (32.0-36.0); Mean Corpuscular Volume 82.7 fL (80.0-100.0); Monocytes # (auto) 0.78 K/uL (0.11-0.59); Monocytes % (auto) 9.1 %; Neutrophils # (auto) 5.09 K/uL (1.40-6.50); Neutrophils % (auto) 59.8 %; Platelet Count 214 K/uL (130-400); RDW Coefficient of Variation 13.2 % (11.5-14.5); RDW Standard Deviation 40.3 fL (36.4-46.3); White Blood Count 8.53 K/ul (4.8-10.8)
[2023-08-27 05:30] LABS: Albumin Globulin Ratio 1.3 (0.9-2); Albumin Level 3.8 gm/dl (3.4-5.0); BUN Creatinine Ratio 16.8 (10-20); Bilirubin,Total 1.2 mg/dl (0.2-1.0); Calcium 8.9 mg/dl (8.6-10.3); Creatinine Clr Calc Pharmacy 93.8 ml/min; Est GFR (African American) 82.2 ml/min; Globulin 2.9 gm/dl (2.5-4.0); Potassium 4.3 mmol/L (3.5-5.1); Total Protein 6.7 gm/dl (6.0-8.3)
[2023-08-27] MEDS: LEVOTHYROXINE SODIUM 50 MCG TABLET PO SCH (06:07)
[2023-08-27] MEDS ORDERED: ENOXAPARIN INJ 40 MG/0.4 ML SYR SQ SCH (08:15)
[2023-08-27] MEDS ORDERED: ENOXAPARIN 150 MG/ML SYR SQ SCH (09:00)
[2023-08-27] MEDS: ATORVASTATIN 20 MG TAB PO SCH (09:28)
[2023-08-27] MEDS: MONTELUKAST SODIUM 10 MG TABLET PO SCH (09:28)
[2023-08-27] MEDS: SERTRALINE HCL 50 MG TABLET PO SCH (09:28)
[2023-08-27] MEDS: LORATADINE 10 MG TAB PO SCH (09:28)
[2023-08-27] MEDS: lisinopril 5 MG TAB PO SCH (09:29)
[2023-08-27] MEDS: DONEPEZIL HCL 10 MG TAB PO SCH (09:29)
[2023-08-27] MEDS ORDERED: OXYMETAZOLINE 0.05% 30 ML BTL PRN (09:46)
[2023-08-27] MEDS: SODIUM CHLORIDE 0.65% NA SOLN 45 ML (OCEAN) SCH ×2 (10:31→14:17)
--- NOTE | 2023-08-27 13:36 | Cardiology Consultation ---
Date of Consultation August 27, 2023 Assessment & Plan (1) Syncope: (2) Coronary artery calcification: (3) Hyperlipidemia: (4) Hypertension: Plan ASSESSMENT/PLAN: 1. Syncope: Does not seem orthostatic in nature. Would like to further evaluate for arrhythmia, high-grade AV block, or sinus pause. No significant findings on telemetry. Recommend 30-day event monitor and if unremarkable, loop recorder. Unfortunately, 30-day event monitor was not available today in the office but able to reserve 1 for him on Wednesday. Cardiology office will arrange a time for him to come in and have this placed. Remain well-hydrated. Avoid driving. Recommend [employer] form be filled out and submitted. This was discussed with him and his . Recommend carotid duplex if not already performed in the past year. 2. Coronary artery calcification: No anginal symptoms despite regular exercise routine. Recommend risk factor modification. Being placed on anticoagulation therapy as per hospitalist service for lower extremity thrombus. Recommend high intensity statin therapy which can be done in the outpatient setting as he is already discharged. For symptoms concerning for ischemic etiology, can pursue outpatient ischemic evaluation. 3. Dyslipidemia: Recommend high intensity statin therapy given coronary artery calcifications. 4. Hypertension: Blood pressure has mostly been elevated. Titrate antihypertensive regimen as appropriate. 5. Carotid bruit: Recommend carotid duplex. Patient and his state that he has already had 1 done but cannot find results in the chart. If not done, would recommend this be performed as well, which can be done in the outpatient setting as he is discharged. 6. Disposition: Cardiology follow-up in the office in approximately 6 weeks so that he can first have his event monitor done. Patient care communicated with Dr. Gonzalez of the primary hospitalist service. Today's visit was 62 minutes in duration, which includes [id number] time, counseling patient, coordinating care, reviewing records, and completing documentation. Thank you for allowing me to participate in the care of your patient. Please call for any other questions or concerns. Sincerely, Marco Lovelace M.D. History of Present Illness Reason for Consultation: syncope Requesting Physician: Dr. Morillo Attending Physician: Crystal Gonzalez MD History of Present Illness Mr. Sunshine is a very pleasant 67-year-old gentleman with a history significant for hypertension, dyslipidemia, and memory loss. He was admitted on 08/26/2023 with syncope. His first episode of syncope was on 08/15/2023. He was outside shoveling snow and felt tired with some dyspnea. He went into the house to rest, felt dizzy/lightheaded and lost consciousness. He got up and lost consciousness again. For the second episode, his was present and stated that loss of consciousness lasted only a few seconds. When he awakened the second time, he felt a little dizzy but was able to walk up stairs and then felt better in a short period of time. His next episode was on 08/24/2023. He woke up at approximately 5:30 AM, use the restroom, got dressed, and was walking in his bedroom when he abruptly lost consciousness. It was witnessed by his and he was once again out for only a couple of seconds. He does not remember feeling short of breath but his heard 3 deep breaths. When he awakened, he felt okay with no further symptoms. In between these times, he continues to exercise at [employer], 3 to 4 days/week and also walks at [employer] or the [employer] for 30 to 45 minutes, 3 to 4 days/week. He has not had any exertional dyspnea, chest pain, palpitations, or decreased exercise tolerance. He denies edema, palpitations, melena, hematochezia, or hematuria. His PCP directed him to the ER yesterday given recurrent syncope. While here, he had an ECG, echo, and was on telemetry. His D-dimer was elevated and CTA of the chest was performed without evidence of PE per radiology. Venous Doppler however reported superficial venous thrombus in the left lesser saphenous vein. Review of systems: As above. Review of systems otherwise negative/unremarkable. Family history: Mother with possible TX at age of 59. She had "severe diabetes" and was a heavy smoker. Social history: He denies tobacco or drug abuse. Rare alcohol. Lives at home with his . Has a son who lives in the basement and also an adult daughter who participated in today's consultation via speaker phone. His (Karen) was present at the bedside. Allergies Allergy/AdvReac Type Severity Reaction Status Date / Time No Known Allergies Allergy Verified 08/26/23 10:22 Home Medications Medication Instructions Recorded Confirmed Type metformin 500 mg tablet,extended 500 mg PO BID #180 tabs 09/24/22 08/26/23 Rx release 24hr (osmotic) donepezil 10 mg tablet 10 mg PO DAILY #90 tabs 10/16/22 08/26/23 Rx aspirin 81 mg tablet,delayed 81 mg PO DAILY PRN pain 10/21/22 08/26/23 History release (Adult Low Dose Aspirin) montelukast 10 mg tablet 10 mg PO DAILY #90 tabs 10/30/22 08/26/23 Rx lisinopril 5 mg tablet 5 mg PO DAILY #90 tabs 11/11/22 08/26/23 Rx loratadine 10 mg tablet (Claritin) 10 mg PO DAILY 11/18/22 08/26/23 History sertraline 50 mg tablet 50 mg PO DAILY #90 tabs 04/30/23 08/26/23 Rx levothyroxine 50 mcg tablet 50 mcg PO DAILY #90 tabs 08/19/23 08/26/23 Rx erythromycin 5 mg/gram (0.5 %) eye 1 cm OPL Q6H 7 days #3.5 grams 08/20/23 08/26/23 Rx ointment atorvastatin 20 mg tablet 20 mg PO DAILY #90 tabs 08/25/23 08/26/23 Rx rivaroxaban 15 mg (42)-20 mg (9) See Rx Instructions PO .COMPLEX 08/27/23 Rx tablets in a starter pack (Xarelto #51 ea DVT-PE Treatment 30-Day Starter) sodium chloride 0.65 % nasal spray 2 spray NA QID PRN dry nasal 08/27/23 Rx aerosol (Saline Mist) passages #44 mL Patient History Medical History (Updated 08/27/23 @ 16:50 by Job Lovelace MD) Coronary artery calcification Hyperlipidemia Hypertension Superficial vein thrombosis Prediabetes Hypothyroidism Depression Erectile dysfunction Spinal stenosis BPH (benign prostatic hyperplasia) Surgical History H/O colonoscopy S/P arthroscopic surgery of left knee History of decompression of median nerve H/O vasectomy Family History Father Multiple myeloma Mother Coronary heart disease Diabetes Acute myocardial infarction Myocardial infarction Denies family history of Ovarian cancer Prostate cancer Breast cancer Colorectal cancer Social History Smoking Status: Never smoker Second Hand Exposure: Yes; Do You Dip or Chew Tobacco: No; Hx Alcohol Use: Yes Hx Substance Use: No Preferred Language: Korean Communication Ability: Effective Beliefs That Will Affect Care: None marital status: Current Living Situation: Spouse and Family current occupational status: retired current occupation: senior fund accountant at [employer] Feels Safe at Home: Yes Childhood Exposure to Second-Hand Smoke: Yes Diet: regular caffeine: Yes (Not often) Dental Care, Regularly: Yes Physical Activity Frequency: 5-6 Times per Week Seatbelt Use: always Sunscreen Use: No Assistive Devices: Glasses Physical Exam Physical Exam: Gen.: No acute distress. Alert. HEENT: Anicteric sclera. Neck: No JVD. Bilateral carotid bruit. Normal carotid upstrokes bilaterally. Cardiac: No ventricular heave. Regular. Normal S1-S2. No murmur. Pulmonary: Clear to auscultation bilaterally without wheezes, rales, or rhonchi. Abdomen: Soft, nontender, nondistended, with normoactive bowel sounds. No bruits noted. Extremities: 2+ radial pulses bilaterally. 2+ posterior tibialis pulses bilaterally. Trace bilateral lower extremity edema. No cyanosis. Psychiatric: Affect appears appropriate. Results & Data Vital Signs (Past 12 Hours) Vital Signs Temp Pulse Pulse Pulse Resp BP Pulse Ox 08/27/23 11:26 36.6 C 64 20 155/75 H 95 08/27/23 09:32 63 144/76 H 08/27/23 07:39 36.4 C L 72 20 169/89 H 96 08/27/23 05:56 55 L 08/27/23 03:19 36.4 C L 65 17 143/86 H 95 O2 Del Method 08/27/23 11:26 Room Air 08/27/23 09:32 08/27/23 07:39 Room Air 08/27/23 05:56 08/27/23 03:19 Room Air Laboratory Results Laboratory Results - last 24 hr 08/26/23 08/26/23 08/27/23 12:20 15:34 04:37 WBC 8.53 RBC 5.10 Hgb 14.2 Hct 42.2 MCV 82.7 MCH 27.8 MCHC 33.6 RDW Std Deviation 40.3 RDW Coeff of Melinda 13.2 Plt Count 214 MPV 10.0 Immature Gran % (Auto) 0.2 Neut % (Auto) 59.8 Lymph % (Auto) 27.5 Bradley % (Auto) 9.1 Eos % (Auto) 2.6 Baso % (Auto) 0.8 Neut # (Auto) 5.09 Lymph # (Auto) 2.35 Bradley # (Auto) 0.78 H Eos # (Auto) 0.22 Baso # (Auto) 0.07 Immature Gran # (Auto) 0.02 Sodium 139 Potassium 4.3 Chloride 106 Carbon Dioxide 28 Anion Gap 5 BUN 18 Creatinine 1.07 Est Cr Clr Drug Dosing 93.8 Est GFR ( Amer) 82.2 Est GFR (Non-Af Amer) 71.0 BUN/Creatinine Ratio 16.8 Glucose 88 Calcium 8.9 Magnesium 2.0 Total Bilirubin 1.2 H AST 15 ALT 9 Alkaline Phosphatase 87 Total Protein 6.7 Albumin 3.8 Globulin 2.9 Albumin/Globulin Ratio 1.3 TSH 2.068 Lyme Disease IgG Ab Negative Lyme Disease IgM Ab Negative Diagnostic Findings Telemetry personally reviewed: Sinus rhythm. No arrhythmia. Venous Doppler study from 08/26/2023 report reviewed: No DVT. Occlusive superficial venous thrombus in the left lesser saphenous vein. Complex left popliteal cyst. CTA chest 08/26/2023: No reported PE. Extensive coronary artery calcifications. Head CT 08/26/2023: No acute intracranial abnormality. Labs reviewed and notable for normal blood counts, stable renal function, normal potassium, normal transaminase levels, normal TSH, normal high-sensitivity troponin, elevated D-dimer. ECG personally reviewed from 08/26/2023: Sinus bradycardia 58 bpm. Nonspecific T wave abnormality. Echo 08/26/2023: Normal LV size, wall motion, systolic function. EF 60 to 65%. Moderate LVH. No significant valvular abnormalities. RVSP 37. History and physical report reviewed. Medications Administered Current Inpatient Medications Acetaminophen (Acetaminophen 325 Mg Tab) 650 mg PO Q4H PRN PRN Reason: Pain or Fever Stop: 09/25/23 17:31 Atorvastatin Calcium (Atorvastatin 20 Mg Tab) 20 mg PO DAILY [facility] Stop: 09/25/23 17:31 Last Admin: 08/27/23 09:28 Dose: 20 mg Donepezil HCl (Donepezil Hcl 10 Mg Tab) 10 mg PO DAILY [facility] Stop: 09/25/23 17:31 Last Admin: 08/27/23 09:29 Dose: 10 mg Enoxaparin Sodium (Enoxaparin 150 Mg/Ml Syr) 135 mg SQ Q12H [facility] Stop: 09/26/23 08:59 Last Admin: 08/27/23 09:52 Dose: 135 mg Levothyroxine Sodium ([facility]othyroxine Sodium 50 Mcg Tablet) [facility]: 09/25/23 06:29 Last Admin: 08/27/23 06:07 Dose: 50 mcg Lisinopril (Lisinopril 5 Mg Tab) 5 mg PO DAILY [facility] Stop: 09/25/23 17:31 Last Admin: 08/27/23 09:29 Dose: 5 mg Loratadine (Loratadine 10 Mg Tab) 10 mg PO DAILY [facility] Stop: 09/25/23 17:31 Last Admin: 08/27/23 09:28 Dose: 10 mg Montelukast Sodium (Montelukast Sodium 10 Mg Tablet) 10 mg PO DAILY [facility] Stop: 09/25/23 17:31 Last Admin: 08/27/23 09:28 Dose: 10 mg Ondansetron HCl (Ondansetron 4 Mg Od Tab) 4 mg PO Q4H PRN PRN Reason: Nausea And Vomiting Stop: 09/25/23 17:31 Oxymetazoline HCl (Oxymetazoline 0.05% 30 Ml Btl) 1 sprays NA BID PRN PRN Reason: nosebleed Stop: 09/01/23 09:45 Polyethylene Glycol (Polyethylene (Miralax) 17 Gm Pack) 17 gm PO DAILY PRN PRN Reason: Constipation Stop: 09/25/23 17:31 Sertraline HCl (Sertraline Hcl 50 Mg Tablet) 50 mg PO DAILY [facility] Stop: 09/25/23 17:31 Last Admin: 08/27/23 09:28 Dose: 50 mg Sodium Chloride (Sodium Chloride 0.65% Na Soln 45 Ml ([place])) 2 sprays NA QID [facility] Stop: 09/26/23 09:49 Last Admin: 08/27/23 10:31 Dose: 2 sprays PG Care Time/CCT Total # of Minutes Spent Total Time Spent with Patient: Total time spent is greater than 50% in coordination of care (as documented) at patient's floor/unit and/or counseling patient: Coding Level of Care Code 76299 INT INP/OBS CARE MIN Diagnoses Syncope R55 Syncope type: unspecified Coronary artery calcification I25.10; I25.84 Hyperlipidemia E78.5 Hypertension I10 Time Spent (min) 62 (1) Syncope Syncope type: unspecified Qualified Code(s): R55 - Syncope and collapse
--- NOTE | 2023-08-27 15:14 | Discharge Summary ---
Discharge Summary Date of Service August 27, 2023 Admission HPI Per Admitting Provider 67 yo male with PMHx of HLD, hypothyroidism, HTN, and memory loss, and depression presents for syncope. 11 days ago patient was shoveling snow in his driveway and had sudden onset shortness of breath. He walked into his house and while grasping a chair for support he got a little dizzy and fainted to the ground. He was down for 1 to 2 minutes. His states that when he got back up he collapsed a second time. No seizure-like activity. When he came about he had very minimal confusion. Then 3 days ago he had a similar event. He got up from his bed and went to the bathroom and after a few minutes passed out to the floor hitting his right knee on the way down. No prodrome with this incidence and when he woke up he had no idea he had passed out. His does mention that in bed prior to him getting up he did appear short of breath. He will have intermittent headache from time to time. Otherwise denies fever, chills, fatigue, chest pain, abdominal pain, nausea, vomiting, diarrhea, dysuria, extremity weakness/tingling/numbness. He has not had any syncopal events in the past. No significant heart or lung history. He states he likely has sleep apnea however has never had a sleep study in the outpatient setting. Principal Dx & Hospital Course #1 = Principal Diagnosis (1) Syncope: 67 yo male with PMHx of HLD, hypothyroidism, HTN, and memory loss, and depression presents for syncope. #Syncope -presented with 2 episodes of syncope 1 week apart. Both episodes preceded with shortness of breath otherwise without prodrome or subsequent confusion. Likely cardiogenic. HR appears to be in 50s since admission, ?episodic bradycardic events. Head CT neg. CTA without PE. CXR unremarkable. No signs for infection. Troponin negative. EKG with sinus bradycardia. -echo ordered -cardiology consulted -monitor on tele - may require outpatient holter monitor #Elevated D-dimer -D-dimer 1300 on admission; unclear etiology, possible due to traumatic falls -CTA chest without PE -ordered bilateral venous Doppler to r/o DVT #Hypothyroidism -cont. levothyroxine -recheck TSH for secondary cause of syncope #HTN -cont. lisinopril #HLD -cont. statin #Memory Deficit -cont. donepezil #Depression -cont. sertraline #Allergic Rhinitis -cont. montelukast, loratadine DVT ppx: heparin SQ FEN/GI: HH, DM2 Code Status: full Dispo: med tele (2) Depression: (3) Hyperlipidemia: (4) Hypertension: (5) Hypothyroidism: (6) Memory deficit: (7) Allergic rhinitis: (8) Superficial vein thrombosis: (9) Prediabetes: Updated Medication List Medication Instructions Recorded Confirmed Type metformin 500 mg tablet,extended 500 mg PO BID #180 tabs 09/24/22 08/26/23 Rx release 24hr (osmotic) donepezil 10 mg tablet 10 mg PO DAILY #90 tabs 10/16/22 08/26/23 Rx aspirin 81 mg tablet,delayed 81 mg PO DAILY PRN pain 10/21/22 08/26/23 History release (Adult Low Dose Aspirin) montelukast 10 mg tablet 10 mg PO DAILY #90 tabs 10/30/22 08/26/23 Rx lisinopril 5 mg tablet 5 mg PO DAILY #90 tabs 11/11/22 08/26/23 Rx loratadine 10 mg tablet (Claritin) 10 mg PO DAILY 11/18/22 08/26/23 History sertraline 50 mg tablet 50 mg PO DAILY #90 tabs 04/30/23 08/26/23 Rx levothyroxine 50 mcg tablet 50 mcg PO DAILY #90 tabs 08/19/23 08/26/23 Rx amoxicillin 875 mg-potassium 1 tab PO BID #18 tabs 08/20/23 08/26/23 Rx clavulanate 125 mg tablet erythromycin 5 mg/gram (0.5 %) eye 1 cm OPL Q6H 7 days #3.5 grams 08/20/23 08/26/23 Rx ointment erythromycin 5 mg/gram (0.5 %) eye 1 cm OPR Q6H 7 days #3.5 grams 08/20/23 08/26/23 Rx ointment atorvastatin 20 mg tablet 20 mg PO DAILY #90 tabs 08/25/23 08/26/23 Rx rivaroxaban 15 mg (42)-20 mg (9) See Rx Instructions PO .COMPLEX 08/27/23 Rx tablets in a starter pack (Xarelto #51 ea DVT-PE Treatment 30-Day Starter) sodium chloride 0.65 % nasal spray 2 spray NA QID PRN dry nasal 08/27/23 Rx aerosol (Saline Mist) passages #44 mL Hospital Stay Data Consultations 08/26/23 14:35 ED Decision to Admit Stat 08/26/23 15:32 Consult Cardiology Routine Diagnostic Imagining Performed 08/26/23 12:21 CT head/brain wo con Stat 08/26/23 13:18 CT angio chest PE protocol Stat 08/26/23 15:33 US venous doppler LE BI Stat Pending Results Patient Have Any Pending Studies at Discharge: No Discharge Instructions Given to Patient (Per Discharging Provider) You were admitted after passing out on 2 occasions and there is concern for a cardiac arrhythmia as the cause of this. You will be sent an external equipment sales specialist to wear to look for any other arrhythmias of the heart. If you have any future sensations like you might pass out, try to lie flat as soon as possible. You should not drive a car until a cause of your syncope is determined. I am required by law to report your syncope and recommendation to not drive to the [place] [employer]. I know this can be upsetting, but it is the safest thing to do in this situation. You were also found to have a blood clot in a vein in your left leg that requires treatment with blood thinners. You were started on Xarelto for this. You should have a repeat ultrasound of the left leg as scheduled to further assess this clot. Your PCP can tell you when it is safe to stop taking the blood thinner. You should take the Xarelto 15mg twice a day for 21 days, then take 20mg daily with your evening meal each day after that. This clot may be from being sedentary and having the recent facial infection. Please follow up with your PCP as to working you up for other causes of blood clots. If you have any issues with bleeding such as blood in your stool, urine, vomit, or a large open wound, please come to the hospital to get checked out. If you fall and hit your head while on a blood thinner, please come to the hospital right away to get checked out. For minor cuts/wounds/scrapes, you will need to hold pressure longer to get the bleeding to stop.Try to not blow your nose and keep your nasal passages moisturized/moist to prevent nose bleeds. Taking your Claritin each day will help stop your runny nose from allergies. Coding Diagnoses Syncope R55 Syncope type: unspecified Other depression F32.89 Depression Type: other depression Hyperlipidemia E78.5 Hypertension I10 Hypothyroidism E03.9 Memory deficit R41.3 Allergic rhinitis J30.9 Superficial vein thrombosis I82.890 Prediabetes R73.03
--- NOTE | 2023-08-27 23:05 | Electrocardiogram Report ---
Test Reason : Blood Pressure : / mmHG Vent. Rate : 058 BPM Atrial Rate : 058 BPM P-R Int : 170 ms QRS Dur : 086 ms QT Int : 422 ms P-R-T Axes : 059 -09 024 degrees QTc Int : 414 ms Sinus bradycardia Nonspecific T wave abnormality No previous ECGs available Confirmed by Job Lovelace ([id number]) on 08/27/2023 11:04:49 PM Referred By: Confirmed By:Job Lovelace
== END 2023-08-27 16:42 | disposition home or self-care (01) ==
LOC: ED 12:06 → EDINP 12:06 → SUATTDRO 15:32 → 2W 17:33